=== PATIENT | male | born 1995 | race Two or more races ===

== ENCOUNTER 2017-04-26 00:30 | Emergency (ER) | payer SELFPAY ==
[~2017-04-26] VITALS: Ht 180.3 cm; Wt 108.9 kg
[2017-04-26 00:40] VITALS: BP 150/85
[2017-04-26] MEDS ORDERED: SULF1TAB24 PO (00:46)
[2017-04-26] MEDS ORDERED: NAPR500T PO (00:46)
--- NOTE | 2017-04-26 00:46 | PHYS DOC ---
Past Medical History Past Medical History: No Pertinent History Past Surgical History: No Surgical History Alcohol Use: None Drug Use: None Adult General Chief Complaint Chief Complaint: SKIN RASH/ABSCESS HPI HPI Patient is a 22 year old male presents to the emergency department with a 2 day history of a abscess in the left axillary region on the chest wall. He states the wound blasted today and drained. He reports no fever, no headache, no nausea, vomiting. No myalgias. Review of Systems Review of Systems Constitutional: Denies fever or chills [] Eyes: Denies change in visual acuity, redness, or eye pain [] HENT: Denies nasal congestion or sore throat [] Respiratory: Denies cough or shortness of breath [] Cardiovascular: No additional information not addressed in HPI [] GI: Denies abdominal pain, nausea, vomiting, bloody stools or diarrhea [] : Denies dysuria or hematuria [] Musculoskeletal: Denies back pain or joint pain [] Integument: Abscess Neurologic: Denies headache, focal weakness or sensory changes [] Endocrine: Denies polyuria or polydipsia [] Allergies Allergies Allergies Coded Allergies Type Severity Reaction Last Updated Verified No Known Drug Allergies 11/16/15 No Physical Exam Physical Exam Constitutional: Well developed, well nourished, no acute distress, non-toxic appearance. [] Neck: Normal range of motion, no tenderness, supple, no stridor. [] Cardiovascular:Heart rate regular rhythm, no murmur [] Skin: Warm, dry, no erythema, no rash. Left lateral chest wall, 2 cm area of induration with surrounding erythema. The central portion is open without discharge. There is no fluctuance. It is mildly tender. [] Back: No tenderness, no CVA tenderness. [] Extremities: No tenderness, no cyanosis, no clubbing, ROM intact, no edema. [] Neurologic: Alert and oriented X 3, normal motor function, normal sensory function, no focal deficits noted. [] Psychologic: Affect normal, judgement normal, mood normal. [] EKG EKG [] Radiology/Procedures Radiology/Procedures [] Course & Med Decision Making Course & Med Decision Making Pertinent Labs and Imaging studies reviewed. (See chart for details) [] Dragon Disclaimer Dragon Disclaimer This electronic medical record was generated, in whole or in part, using a voice recognition dictation system. Departure Departure Impression: Primary Impression: Abscess or cellulitis of chest wall Disposition: 01 HOME, SELF-CARE Condition: STABLE Referrals: NO PCP (PCP) Patient Instructions: Abscess, Cellulitis, [id number] Scripts Naproxen (NAPROSYN) 500 Mg Tablet 1 TAB PO BID Y for PAIN, #30 TAB 1 Refill Prov: JORDAN KLEIN APRN 04/26/17 Sulfamethoxazole/Trimethoprim (BACTRIM DS TABLET) 1 Each Tablet 1 TAB PO BID, #20 TAB Prov: JORDAN KLEIN APRN 04/26/17 JORDAN KLEIN APRN April 26, 2017 00:46
== END 2017-04-26 00:54 | disposition home or self-care (01) ==
LOC: ER 00:30
DX: L02.213 Cutaneous abscess of chest wall (principal)
CPT/HCPCS: 99283

== ENCOUNTER 2017-04-29 17:54 | Emergency (ER) | payer SELFPAY ==
[~2017-04-29] VITALS: Ht 177.8 cm; Wt 108.9 kg
[~2017-04-29 17:54] MED LIST: NAPR500T PO; SULF1TAB24 PO
[2017-04-29 18:20] VITALS: BP 149/72
--- NOTE | 2017-04-29 19:09 | PHYS DOC ---
Past Medical History Past Medical History: No Pertinent History Past Surgical History: No Surgical History Alcohol Use: Rarely Drug Use: None Adult General Chief Complaint Chief Complaint: SKIN PROBLEM HPI HPI Patient is a 22 year old male resents to the emergency department stating that he was seen here on 26 April. He states he was seen for an abscess in which she was placed on Bactrim. Patient states the area has since opened up and has been draining. He states that the redness has decreased although he still continues to have some drainage noted from the site. Patient is here because he does not feel that the infection is getting any better. Patient denies any fever, chills or any nausea vomiting. Review of Systems Review of Systems Constitutional: Denies fever or chills [] Eyes: Denies change in visual acuity, redness, or eye pain [] HENT: Denies nasal congestion or sore throat [] Respiratory: Denies cough or shortness of breath [] Cardiovascular: No additional information not addressed in HPI [] GI: Denies abdominal pain, nausea, vomiting, bloody stools or diarrhea [] : Denies dysuria or hematuria [] Musculoskeletal: Denies back pain or joint pain [] Integument: Denies rash or skin lesions. Abscess left sided chest, draining Neurologic: Denies headache, focal weakness or sensory changes [] Endocrine: Denies polyuria or polydipsia [] Allergies Allergies Allergies Coded Allergies Type Severity Reaction Last Updated Verified No Known Drug Allergies 11/16/15 No Physical Exam Physical Exam Constitutional: Well developed, well nourished, no acute distress, non-toxic appearance. [] HENT: Normocephalic, atraumatic, bilateral external ears normal, oropharynx moist, no oral exudates, nose normal. [] Eyes: PERRLA, EOMI, conjunctiva normal, no discharge. [] Neck: Normal range of motion, no tenderness, supple, no stridor. [] Cardiovascular: Harvest warm and dry. Lungs & Thorax: No respiratory distress noted Skin: Warm, dry, no erythema, no rash. Patient with an abscess that is pierced you have been opened and is draining at this time. He does have some clear drainage noted from the site. No redness noted around the area at this time. No swelling and no tenderness noted. Back: No tenderness Extremities: No tenderness, no cyanosis, no clubbing, ROM intact, no edema. [] Neurologic: Alert and oriented X 3, normal motor function, normal sensory function, no focal deficits noted. [] Psychologic: Affect normal, judgement normal, mood normal. [] Current Patient Data Vital Signs Vital Signs Date Time Temp Pulse Resp B/P (MAP) Pulse Ox O2 Delivery O2 Flow Rate FiO2 04/29/17 18:20 98.7 89 20 96 Room Air 98.7 EKG EKG [] Radiology/Procedures Radiology/Procedures [] Course & Med Decision Making Course & Med Decision Making Pertinent Labs and Imaging studies reviewed. (See chart for details) Recommended the patient continue with the antibiotics as prescribed. Recommended cleaning the site with soap and water. Spoke with him in regards to keeping the areas clean and dry as possible. Provided them information in good handwashing. Signs and symptoms to return back to the emergency department was provided. Patient will be discharged home in stable condition. Patient does not have a primary care physician he will be provided with a list to help obtain one. [] Dragon Disclaimer Dragon Disclaimer This electronic medical record was generated, in whole or in part, using a voice recognition dictation system. Departure Departure Impression: Primary Impression: Abscess Disposition: 01 HOME, SELF-CARE Condition: STABLE Referrals: NO PCP (PCP) Patient Instructions: Abscess, [id number] Additional Instructions: Keep the area clean and dry. Clean the site twice daily with soap and water and apply antibiotic ointment to the area. Keep the area covered as long as you will have drainage noted. Continue with the antibiotics you have been prescribed. Tylenol or ibuprofen for pain and discomfort. Follow-up with her primary care physician in the next 3-5 days. Return back to emergency department sign symptoms of become worse. ARACELI DONOHUE [employer]IST April 29, 2017 19:09
== END 2017-04-29 19:20 | disposition home or self-care (01) ==
LOC: ER 17:54
DX: L02.213 Cutaneous abscess of chest wall (principal)
CPT/HCPCS: 99281

== ENCOUNTER 2019-03-10 04:28 | Emergency (ER) | payer OTHER ==
[~2019-03-10] VITALS: Ht 177.8 cm; Wt 102.1 kg
[~2019-03-10 04:28] MED LIST changes: +NAPR-683 PO; -NAPR500T PO
[2019-03-10 04:40] VITALS: BP 185/84
[2019-03-10] MEDS ORDERED: NAPR-514 PO (05:06)
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
== END 2019-03-10 05:26 | disposition home or self-care (01) ==
LOC: ER 04:28
DX: S80.212A Abrasion, left knee, initial encounter (principal); S80.211A Abrasion, right knee, initial encounter; V29.9XXA Motorcycle rider (driver) (passenger) injured in unspecified traffic accident, initial encounter; Y93.89 Activity, other specified; Y92.410 Unspecified street and highway as the place of occurrence of the external cause; Y99.8 Other external cause status
CPT/HCPCS: 99282

== ENCOUNTER 2019-11-24 20:58 | Emergency (ER) | payer BC, OTHER ==
[~2019-11-24] VITALS: Ht 180.3 cm; Wt 106.6 kg
[~2019-11-24 20:58] MED LIST changes: +NAPR-514 PO
[2019-11-24] MEDS ORDERED: ASPIRIN 325 MG TABLET PO ONE (21:30)
[2019-11-24 21:33] LABS: BASO % 1 % (0-3); EOS # 0.1 x10^3/uL (0.0-0.7); EOS % 1 % (0-3); HEMATOCRIT 49.5 % (39.0-53.0); HEMOGLOBIN 17.1 g/dL (13.0-17.5); LYMPH # 2.2 x10^3/uL (1.0-4.8); LYMPH % 35 % (24-48); MEAN CORPUSCULAR HEMOGLOBIN 30 pg (25-35); MEAN CORPUSCULAR HGB CONC 35 g/dL (31-37); MEAN CORPUSCULAR VOLUME 88 fL (79-100); MONO # 0.8 x10^3/uL (0.0-1.1); MONO % 13 % (0-9); NEUT # 3.1 x10^3/uL (1.8-7.7); NEUT % 51 % (31-73); PLATELET COUNT 263 x10^3/uL (140-400); RED BLOOD COUNT 5.65 x10^6/uL (4.30-5.70); RED CELL DISTRIBUTION WIDTH 12.6 % (11.5-14.5); WHITE BLOOD COUNT 6.2 x10^3/uL (4.0-11.0)
[2019-11-24 21:46] LABS: CALCIUM 9.3 mg/dL (8.5-10.1); CREATININE 1.1 mg/dL (0.7-1.3); GFR 82.2; POTASSIUM 3.3 mmol/L (3.5-5.1)
--- NOTE | 2019-11-24 21:47 | PHYS DOC ---
Past Medical History Past Medical History: No Pertinent History (AGUSTINA GO APRN) Past Surgical History: No Surgical History (AGUSTINA GO APRN) Alcohol Use: Rarely Drug Use: None (AGUSTINA GO APRN) Attending Signature I have participated in the care of this patient and I have reviewed and agree with all pertinent clinical information above including history, exam, and recommendations. (VADIM CASTILLO MD) Adult General Chief Complaint Chief Complaint: Palpitations HPI HPI Patient is a 24 year old male patient with no significant medical history who presents to the ED today complaining of palpitations at night that began a week ago. Patient states he had cold symptoms for 1 week ago and started taking pseudoephedrine and NyQuil daily. He states since then when he goes to bed he has palpitations. He states his apple watch has read his heart rate as high as 114. He states occasionally he feels he has slight chest pain when he has this palpitations. He currently denies any pain. (AGUSTINA GO APRN) Review of Systems Review of Systems Constitutional: Denies fever or chills [] Eyes: Denies change in visual acuity, redness, or eye pain [] HENT: Denies nasal congestion or sore throat [] Respiratory: Denies cough or shortness of breath [] Cardiovascular: Reports palpitations. Reports chest pain. GI: Denies abdominal pain, nausea, vomiting, bloody stools or diarrhea [] : Denies dysuria or hematuria [] Musculoskeletal: Denies back pain or joint pain [] Integument: Denies rash or skin lesions [] Neurologic: Denies headache, focal weakness or sensory changes [] All other systems were reviewed and found to be within normal limits, except as documented in this note. (AGUSTINA GO APRN) Current Medications Current Medications Current Medications Medications (Trade) Dose Ordered Sig/Connor Start Time Stop Time Status Last Admin Dose Admin Aspirin (Tony Aspirin) 325 mg 1X ONCE 11/24/19 21:30 11/24/19 21:31 DC 11/24/19 21:47 325 MG (VADIM CASTILLO MD) Allergies Allergies Allergies Coded Allergies Type Severity Reaction Last Updated Verified No Known Drug Allergies 11/16/15 No (VADIM CASTILLO MD) Physical Exam Physical Exam Constitutional: Well developed, well nourished, no acute distress, non-toxic appearance. [] HENT: Normocephalic, atraumatic, bilateral external ears normal, oropharynx moist, no oral exudates, nose normal. [] Eyes: PERRLA, EOMI, conjunctiva normal, no discharge. [] Neck: Normal range of motion, no tenderness, supple, no stridor. [] Cardiovascular:Heart rate regular rhythm, no murmur [] Lungs & Thorax: Bilateral breath sounds clear to auscultation [] Abdomen: Bowel sounds normal, soft, no tenderness, no masses, no pulsatile masses. [] Skin: Warm, dry, no erythema, no rash. [] Back: No tenderness, no CVA tenderness. [] Extremities: No tenderness, no cyanosis, no clubbing, ROM intact, no edema. [] Neurologic: Alert and oriented X 3, normal motor function, normal sensory function, no focal deficits noted. [] Psychologic: Affect normal, judgement normal, mood normal. [] (AGUSTINA GO APRN) Current Patient Data Vital Signs Vital Signs Date Time Temp Pulse Resp B/P (MAP) Pulse Ox O2 Delivery O2 Flow Rate FiO2 11/24/19 22:06 70 18 140/84 (102) 98 Room Air 11/24/19 21:05 98.5 98.5 (VADIM CASTILLO MD) Lab Values Laboratory Tests Test 11/24/19 21:05 11/24/19 21:08 Urine Opiates Screen Neg (NEG) Urine Methadone Screen Neg (NEG) Urine Barbiturates Neg (NEG) Urine Phencyclidine Screen Neg (NEG) Urine Amphetamine/Methamphetamine Neg (NEG) Urine Benzodiazepines Screen Neg (NEG) Urine Cocaine Screen Neg (NEG) Urine Cannabinoids Screen Neg (NEG) Urine Ethyl Alcohol Neg (NEG) White Blood Count 6.2 x10^3/uL (4.0-11.0) Red Blood Count 5.65 x10^6/uL (4.30-5.70) Hemoglobin 17.1 g/dL (13.0-17.5) Hematocrit 49.5 % (39.0-53.0) Mean Corpuscular Volume 88 fL (79-100) Mean Corpuscular Hemoglobin 30 pg (25-35) Mean Corpuscular Hemoglobin Concent 35 g/dL (31-37) Red Cell Distribution Width 12.6 % (11.5-14.5) Platelet Count 263 x10^3/uL (140-400) Neutrophils (%) (Auto) 51 % (31-73) Lymphocytes (%) (Auto) 35 % (24-48) Monocytes (%) (Auto) 13 % (0-9) H Eosinophils (%) (Auto) 1 % (0-3) Basophils (%) (Auto) 1 % (0-3) Neutrophils # (Auto) 3.1 x10^3/uL (1.8-7.7) Lymphocytes # (Auto) 2.2 x10^3/uL (1.0-4.8) Monocytes # (Auto) 0.8 x10^3/uL (0.0-1.1) Eosinophils # (Auto) 0.1 x10^3/uL (0.0-0.7) Basophils # (Auto) 0.0 x10^3/uL (0.0-0.2) Sodium Level 142 mmol/L (136-145) Potassium Level 3.3 mmol/L (3.5-5.1) L Chloride Level 102 mmol/L (98-107) Carbon Dioxide Level 32 mmol/L (21-32) Anion Gap 8 (6-14) Blood Urea Nitrogen 13 mg/dL (8-26) Creatinine 1.1 mg/dL (0.7-1.3) Estimated GFR (Cockcroft-Gault) 82.2 BUN/Creatinine Ratio 12 (6-20) Glucose Level 95 mg/dL (70-99) Calcium Level 9.3 mg/dL (8.5-10.1) Magnesium Level 2.2 mg/dL (1.8-2.4) Total Bilirubin 0.3 mg/dL (0.2-1.0) Aspartate Amino Transferase (AST) 24 U/L (15-37) Alanine Aminotransferase (ALT) 34 U/L (16-63) Alkaline Phosphatase 100 U/L (46-116) Creatine Kinase 117 U/L (39-308) Creatine Kinase MB (Mass) 1.1 ng/mL (0.0-3.6) Creatine Kinase MB Relative Index 0.9 % (0-4) Troponin I Quantitative < 0.017 ng/mL (0.000-0.055) EC-Pit-S-Type Natriuretic Peptide 24 pg/mL (0-124) Total Protein 8.6 g/dL (6.4-8.2) H Albumin 4.2 g/dL (3.4-5.0) Albumin/Globulin Ratio 1.0 (1.0-1.7) Thyroid Stimulating Hormone (TSH) 3.553 uIU/mL (0.358-3.74) Laboratory Tests 11/24/19 21:08 Laboratory Tests 11/24/19 21:08 (VADIM CASTILLO MD) EKG EKG [address] Castillo sinus rhythm HR 75 no STEMI[] (AGUSTINA GO APRN) Radiology/Procedures Radiology/Procedures [] (AGUSTINA GO APRN) Course & Med Decision Making Course & Med Decision Making Pertinent Labs and Imaging studies reviewed. (See chart for details) This is a 24-year-old male patient presenting to the ED today complaining of palpitations and slight chest pain, symptoms began a week ago after he started taking NyQuil and pseudoephedrine daily for cold symptoms. Labs are negative including cardiac work up EKG is negative. Heart score is 0 Instructed to stop taking NyQuil and pseudoephedrine. Provided cardiology for F/u (AGUSTINA GO APRN) Dragon Disclaimer Dragon Disclaimer This electronic medical record was generated, in whole or in part, using a voice recognition dictation system. (AGUSTINA GO APRN) The HEART Score for CP Pts HEART Score for Chest Pain: HEART Score for Chest Pain Response (Comments) Value History Slighlty/Non-Suspicious 0 ECG Normal 0 Age < 45 0 Risk Factors No Risk Factors 0 Troponin < Normal Limit 0 Total 0 Risk Factors: Risk Factors: DM, Current or recent (<one month) smoker, HTN, HLP, family history of CAD, obesity. Risk Scores: Score 0 - 3: 2.5% MACE over next 6 weeks - Discharge Home Score 4 - 6: 20.3% MACE over next 6 weeks - Admit for Clinical Observation Score 7 - 10: 72.7% MACE over next 6 weeks - Early Invasive Strategies (AGUSTINA GO APRN) Departure Departure Impression: Primary Impression: Palpitations Additional Impression: Chest pain Disposition: HOME, SELF-CARE Condition: STABLE Referrals: NO PCP (PCP) EVELIN BISHOP MD follow up in 1 week Patient Instructions: Chest Pain (Nonspecific), [id number], Palpitations, [id number] Additional Instructions: You were seen for chest pain and palpitations. 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
[2019-11-24 21:49] LABS: BARBITURATES NEG (NEG); BENZODIAZEPINES NEG (NEG); CANNABINOIDS NEG (NEG); COCAINE NEG (NEG); METHADONE NEG (NEG); OPIATES NEG (NEG); PHENCYCLIDINE NEG (NEG)
[2019-11-24 21:52] LABS: AMPHETAMINE/METHAMPHETAMINE NEG (NEG)
[2019-11-24 21:52] LABS: ALBUMIN 4.2 g/dL (3.4-5.0); MAGNESIUM 2.2 mg/dL (1.8-2.4); TOTAL BILIRUBIN 0.3 mg/dL (0.2-1.0); TOTAL PROTEIN 8.6 g/dL (6.4-8.2)
[2019-11-24 22:06] VITALS: BP 140/84
--- NOTE | 2019-11-24 22:11 | RAD ---
EXAM: AP View of the chest DATE: 11/24/2019 9:24 PM INDICATION: Chest pain, palpitations COMPARISON: 11/16/2015 FINDINGS: The heart is not enlarged. Mediastinal and hilar contours are normal. No focal parenchymal airspace opacity. No pleural effusion or pneumothorax. IMPRESSION: 1. No radiographic evidence for acute cardiopulmonary process. Electronically signed by: Tru Pettit MD (11/24/2019 10:08 PM) [id number]
--- NOTE | 2019-11-26 09:33 | EKG ---
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
== END 2019-11-24 22:12 | disposition home or self-care (01) ==
LOC: ER 20:58
DX: R00.2 Palpitations (principal); R07.89 Other chest pain; Z79.82 Long term (current) use of aspirin
CPT/HCPCS: 36415; 71045; 80053; 80307; 82553; 83735; 83880; 84443; 84484; 85025; 93005; 99285

== ENCOUNTER 2020-12-02 19:11 | Emergency (ER) | payer BC ==
[~2020-12-02] VITALS: Ht 177.8 cm; Wt 100.0 kg
--- NOTE | 2020-12-02 22:21 | RAD ---
Exam: Chest one view INDICATION: Cough, Covid positive TECHNIQUE: Frontal view of the chest Comparisons: 11/24/2019 FINDINGS: The cardiomediastinal silhouette and pulmonary vessels are within normal limits. The lung and pleural spaces are clear. IMPRESSION: No acute cardiopulmonary process. Electronically signed by: Kat Madison MD (12/02/2020 10:19 PM) [facility]
[2020-12-02 23:11] VITALS: BP 134/81
--- NOTE | 2020-12-02 23:30 | PHYS DOC ---
Past Medical History Past Medical History: No Pertinent History (AGUSTINA GO APRN) Past Surgical History: No Surgical History (AGUSTINA GO APRN) Smoking Status: Never Smoker Alcohol Use: Rarely Drug Use: None (AGUSTINA GO APRN) General Adult EDM: Chief Complaint: BACK PAIN - NO INJURY HPI: HPI: Patient is a 25 year old male with no significant medical history who presents to the ED today complaining of mild intermittent upper back pain that began yesterday after he was diagnosed with COVID-19. Patient states he has been having shortness of breath since November 25. Denies any fever. He states the is also positive for Covid. (AGUSTINA GO APRN) Review of Systems: Review of Systems: Constitutional: Denies fever or chills. [] Eyes: Denies change in visual acuity. [] HENT: Denies nasal congestion or sore throat. [] Respiratory: Reports upper back pain, positive for COVID-19 denies cough or shortness of breath. [] Cardiovascular: Denies chest pain or edema. [] GI: Denies abdominal pain, nausea, vomiting, bloody stools or diarrhea. [] : Denies dysuria. [] Musculoskeletal: Denies back pain or joint pain. [] Integument: Denies rash. [] Neurologic: Denies headache, focal weakness or sensory changes. [] [] Psychiatric: Denies depression or anxiety. [] (AGUSTINA GO APRN) Heart Score: Risk Factors: Risk Factors: DM, Current or recent (<one month) smoker, HTN, HLP, family history of CAD, obesity. Risk Scores: Score 0 - 3: 2.5% MACE over next 6 weeks - Discharge Home Score 4 - 6: 20.3% MACE over next 6 weeks - Admit for Clinical Observation Score 7 - 10: 72.7% MACE over next 6 weeks - Early Invasive Strategies (AGUSTINA GO APRN) Allergies: Allergies: Allergies Coded Allergies Type Severity Reaction Last Updated Verified No Known Drug Allergies 11/16/15 No (AGUSTINA GO APRN) Physical Exam: PE: Constitutional: Well developed, well nourished, no acute distress, non-toxic appearance. [] HENT: Normocephalic, atraumatic, bilateral external ears normal, oropharynx moist, no oral exudates, nose normal. [] Eyes: PERRLA, EOMI, conjunctiva normal, no discharge. [] Neck: Normal range of motion, no tenderness, supple, no stridor. [] Cardiovascular:Heart rate regular rhythm, no murmur [] Lungs & Thorax: Bilateral breath sounds clear to auscultation [] Abdomen: Bowel sounds normal, soft, no tenderness, no masses, no pulsatile masses. [] Skin: Warm, dry, no erythema, no rash. [] Back: No tenderness, no CVA tenderness. [] Extremities: No tenderness, no cyanosis, no clubbing, ROM intact, no edema. [] Neurologic: Alert and oriented X 3, normal motor function, normal sensory function, no focal deficits noted. [] Psychologic: Affect normal, judgement normal, mood normal. [] (AGUSTINA GO APRN) Current Patient Data: Vital Signs: Vital Signs Date Time Temp Pulse Resp B/P (MAP) Pulse Ox O2 Delivery O2 Flow Rate FiO2 12/02/20 22:41 82 18 140/87 (104) 97 Room Air (AGUSTINA GO APRN) EKG: EKG: [] (AGUSTINA GO APRN) Radiology/Procedures: Radiology/Procedures: []PROCEDURE: CHEST AP ONLY Exam: Chest one view INDICATION: Cough, Covid positive TECHNIQUE: Frontal view of the chest Comparisons: 11/24/2019 FINDINGS: The cardiomediastinal silhouette and pulmonary vessels are within normal limits. The lung and pleural spaces are clear. IMPRESSION: No acute cardiopulmonary process. Electronically signed by: Kat Mims MD (12/02/2020 10:19 PM) [facility] DICTATED and SIGNED BY: KAT MIMS MD DATE: 12/02/20 [id number] (AGUSTINA GO APRN) Course & Med Decision Making: Course & Med Decision Making Pertinent Labs and Imaging studies reviewed. (See chart for details) This is a 25-year-old male patient presented to the ED today complaining of upper back pain that began yesterday after he got diagnosed with COVID-19. He has had shortness of breath since November 25. The is also positive for COVID-19. Chest x-ray is negative, O2 sats above 97% on room air. Patient is afebrile. He was reassured and discharged home. Instructed follow-up with PCP in a week. Provided return precautions. (AGUSTINA GO APRN) Ivory Disclaimer: Ivory Disclaimer: This electronic medical record was generated, in whole or in part, using a voice recognition dictation system. (AGUSTINA GO APRN) Departure Departure Impression: Primary Impression: COVID-19 virus RNA test result positive at limit of detection Additional Impressions: Shortness of breath Back pain Qualified Codes: M54.9 - Dorsalgia, unspecified Disposition: 01 DC HOME SELF CARE/HOMELESS Condition: STABLE Referrals: NO PCP (PCP) Follow-up with your doctor in 1 to 2 weeks Patient Instructions: Shortness of Breath Additional Instructions: You were evaluated in the emergency room, your chest x-ray is negative for any acute findings. We recommend you take [id number] pain relievers as needed for your pain. Follow-up with your doctor in 1 week. Attending Signature Attending Signature I have reviewed the PA/ART HISTORIAN's note and plan of care. I was available for consultation as needed during the patient's visit in the emergency department. I agree with the clinical impression, plan, and disposition. (LYNDON ANNE DO) AGUSTINA GO APRN Dec 02, 2020 23:29 LYNDON ANNE DO Dec 03, 2020 00:29
== END 2020-12-02 23:42 | disposition home or self-care (01) ==
LOC: ER 19:11
DX: U07.1 COVID-19 (principal); M54.6 Pain in thoracic spine; R06.02 Shortness of breath
CPT/HCPCS: 71045; 99285